=== PATIENT | female | born 2000 | race Caucasian/White ===

== ENCOUNTER 2023-03-18 09:26 | Day surgery (SDC) | payer OTHER ==
[2023-03-18] VITALS (8 sets, daily range): BP systolic 97–113; BP diastolic 50–76; PULSE 66–78; RESP 12–16; TEMP 98.2; O2SAT 96–97
[~2023-03-18] VITALS: Ht 154.9 cm; Wt 99.0 kg
[2023-03-18] MEDS ORDERED: EREN70AU2 (10:09)
[2023-03-18] MEDS ORDERED: LORazepam 0.5 MG tablet PO PRN (11:00)
[2023-03-18 11:02] LABS: URINE HCG NEGATIVE (NEG)
[2023-03-18 12:56] LABS: GLUCOSE,CSF 57 MG/DL (40-75); TOTAL PROTEIN,CSF 38 MG/DL (15-45)
[2023-03-18 13:12] LABS: APPEARANCE,CSF CLEAR; CSF RBC 0 /CU MM (0); CSF SUPERNATANT COLOR COLORLESS; CSF VOLUME 12.5 ML; CSF WBC CT 1 /CU MM (0-5); TUBE# COUNTED 3
== END 2023-03-18 14:20 | disposition home or self-care (01) ==
LOC: RAD 09:26 → SSTAY O 14:20
PROVIDERS: ATTEND Nurse Practitioner Family
DX: G93.2 Benign intracranial hypertension (principal); G43.909 Migraine, unspecified, not intractable, without status migrainosus; F31.9 Bipolar disorder, unspecified; J45.909 Unspecified asthma, uncomplicated; G47.00 Insomnia, unspecified; F41.1 Generalized anxiety disorder; E66.9 Obesity, unspecified; Z68.41 Body mass index [BMI] 40.0-44.9, adult; Z79.899 Other long term (current) drug therapy
CPT/HCPCS: 62328; 77002; 81025; 82945; 84157; 89051